=== PATIENT | female | born 1960 | race Caucasian/White ===

== ENCOUNTER 2020-05-30 15:25 | Emergency (ER) | payer BC ==
[2020-05-30] MEDS ORDERED: Lactated Ringers 1,000 ML IV ONE (15:26)
[2020-05-30] MEDS ORDERED: Ketorolac 30 MG/ML SDV IVPUSH ONE (15:26)
--- NOTE | 2020-05-30 15:37 | EDM.PDOC ---
ED HPI GENERAL MEDICAL PROBLEM - General Chief Complaint: Flank Pain Stated Complaint: L)flank pain Time Seen by Provider: 05/30/20 15:36 Course - Orders/Labs/Meds Orders: Active Orders 24 hr Category Date Time Status AMYLASE [CHEM] Stat Lab 05/30/20 15:27 Ordered C-REACTIVE PROTEIN [CHEM] Stat Lab 05/30/20 15:27 Ordered CBC W/O DIFF,HEMOGRAM [HEME] Stat Lab 05/30/20 15:27 Ordered COMPREHENSIVE METABOLIC PN,CMP [CHEM] Stat Lab 05/30/20 15:27 Ordered LIPASE [CHEM] Stat Lab 05/30/20 15:27 Ordered UA RFX MALINDA AND CULT IF INDIC [URIN] Stat Lab 05/30/20 15:27 Ordered Lactated Ringers [Ringers, Lactated] 1,000 ml Med 05/30/20 15:26 Active IV .BOLUS Ondansetron [Zofran] Med 05/30/20 15:28 Active 4 mg IVPUSH Q6H PRN Medication Orders Lactated Ringer's (Ringers, Lactated) 1,000 mls @ 999 mls/hr IV .BOLUS ONE Stop: 05/30/20 16:26 Ondansetron HCl (Zofran) 4 mg IVPUSH Q6H PRN PRN Reason: Nausea/Vomiting Meds: Medications Generic Name Dose Route Start Last Admin Trade Name Freq PRN Reason Stop Dose Admin Lactated Ringer's 1,000 mls @ 999 mls/hr 05/30/20 15:26 Ringers, Lactated IV 05/30/20 16:26 .BOLUS ONE Ondansetron HCl 4 mg 05/30/20 15:28 Zofran IVPUSH Q6H PRN Nausea/Vomiting Discontinued Medications Generic Name Dose Route Start Last Admin Trade Name Freq PRN Reason Stop Dose Admin Ketorolac Tromethamine 30 mg 05/30/20 15:26 Toradol IVPUSH 05/30/20 15:27 ONETIME ONE Departure - Discharge Information - My Orders Last 24 Hours: My Active Orders 05/30/20 15:26 Lactated Ringers [Ringers, Lactated] 1,000 ml IV .BOLUS 05/30/20 15:27 AMYLASE [CHEM] Stat C-REACTIVE PROTEIN [CHEM] Stat CBC W/O DIFF,HEMOGRAM [HEME] Stat COMPREHENSIVE METABOLIC PN,CMP [CHEM] Stat LIPASE [CHEM] Stat UA RFX MALINDA AND CULT IF INDIC [URIN] Stat 05/30/20 15:28 Ondansetron [Zofran] 4 mg IVPUSH Q6H PRN - Assessment/Plan Last 24 Hours: My Active Orders 05/30/20 15:26 Lactated Ringers [Ringers, Lactated] 1,000 ml IV .BOLUS 05/30/20 15:27 AMYLASE [CHEM] Stat C-REACTIVE PROTEIN [CHEM] Stat CBC W/O DIFF,HEMOGRAM [HEME] Stat COMPREHENSIVE METABOLIC PN,CMP [CHEM] Stat LIPASE [CHEM] Stat UA RFX MALINDA AND CULT IF INDIC [URIN] Stat 05/30/20 15:28 Ondansetron [Zofran] 4 mg IVPUSH Q6H PRN
[2020-05-30] MEDS: Ondansetron 4 MG/2 ML SDV IVPUSH PRN ×2 (15:42→19:26)
[2020-05-30] MEDS ORDERED: Morphine 4 MG/ML VIAL IVPUSH ONE ×2 (15:46→16:17)
[2020-05-30 16:10] LABS: CHLORIDE,CL 107 mEq/L (98-106); SODIUM,NA 145 mEq/L (136-145)
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
[2020-05-30] MEDS ORDERED: Morphine 2 MG/ML SYRINGE IVPUSH ONE (19:15)
[2020-05-30] MEDS ORDERED: Ondansetron 4 MG/2 ML SDV IVPUSH ONE (19:16)
== END 2020-05-30 19:33 ==
LOC: CC.ED 15:25
DX: N13.2 Hydronephrosis with renal and ureteral calculous obstruction (principal)
CPT/HCPCS: 36415; 74176; 80053; 81001; 82150; 83690; 85027; 86140; 96374; 96375; 96376; 99284; J1885; J2270; J2405; J7120